=== PATIENT | male | born 1960 | race Caucasian/White ===

== ENCOUNTER 2017-02-28 20:11 | Emergency (ER) | payer BC ==
[~2017-02-28 20:11] MED LIST: IBUPROFEN PO; METH10OR11 PO
--- NOTE | 2017-02-28 21:13 | NUR ---
PATIENT LEFT WITHOUT BEING TRIAGED OR SEEN BY [facility]
== END 2017-02-28 21:14 | disposition left against medical advice (07) ==
LOC: ER 20:13
DX: Z53.21 Procedure and treatment not carried out due to patient leaving prior to being seen by health care provider (principal)

== ENCOUNTER 2023-09-21 17:07 | Emergency (ER) | payer BC, OTHER ==
[~2023-09-21] VITALS: Ht 180.3 cm; Wt 81.6 kg
[2023-09-21 19:44] LABS: BASOPHILS # (AUTO) 0.1 K/UL (0.0-0.2); BASOPHILS % (AUTO) 1.3 % (0.0-2.0); EOSINOPHILS # (AUTO) 0.1 K/uL (0.0-0.7); EOSINOPHILS % (AUTO) 1.1 % (0.0-7.0); HEMATOCRIT 38.9 % (36.7-47.1); HEMOGLOBIN 13.3 g/dL (12.5-16.3); LYMPHOCYTES # (AUTO) 3.4 K/uL (0.8-4.8); LYMPHOCYTES % (AUTO) 43.6 % (20.5-51.5); MEAN CORPUSCULAR HEMOGLOBIN 28.3 uug (23.8-33.4); MEAN CORPUSCULAR HGB CONC 34 g/dL (32.5-36.3); MEAN CORPUSCULAR VOLUME 82.9 fL (73.0-96.2); MONOCYTES # (AUTO) 0.7 K/uL (0.1-1.30); MONOCYTES % (AUTO) 9.3 % (0.0-11.0); NEUTROPHILS # (AUTO) 3.5 K/uL (1.8-8.9); NEUTROPHILS % (AUTO) 44.7 % (38.5-71.5); PLATELET COUNT (AUTO) 262 K/uL (152-348); RED BLOOD CELL COUNT(AUTO) 4.69 MIL/uL (4.06-5.63); RED CELL DISTRIBUTION WIDTH 14.1 % (12.1-16.2); WHITE BLOOD COUNT (AUTO) 7.8 K/uL (3.6-10.2)
[2023-09-21 19:45] LABS: DIFFERENTIAL COMMENT 1
[2023-09-21 19:55] LABS: CALCIUM 9.4 mg/dL (8.5-10.1); CARBON DIOXIDE 31 mmol/L (21-32); CHLORIDE 100 mmol/L (98-107); CREATININE 1.1 mg/dL (0.6-1.3); GLUCOSE 93 mg/dL (74-106); SODIUM SERUM 138 mmol/L (136-145); UREA NITROGEN, BLOOD 11 mg/dL (7-18)
[2023-09-21 20:04] LABS: ALANINE AMINOTRANSFERASE 23 U/L (16-63); ALBUMIN 3.8 g/dL (3.4-5.0); ALKALINE PHOSPHATASE 81 U/L (50-136); ASPARTATE AMINOTRANSFERASE 19 U/L (15-37); BILIRUBIN,DIRECT 0.1 mg/dL (0.0-0.2); BILIRUBIN,TOTAL 0.7 mg/dL (0.2-1.0); TOTAL PROTEIN, SERUM 7.4 g/dL (6.4-8.2)
[2023-09-21] MEDS ORDERED: HYDR25CA PO (21:17)
[2023-09-21 21:37] VITALS: BP 132/84; TEMP 98; O2SAT 98
== END 2023-09-21 21:38 | disposition home or self-care (01) ==
LOC: ER 17:08
DX: F41.9 Anxiety disorder, unspecified (principal); G43.909 Migraine, unspecified, not intractable, without status migrainosus; Z79.899 Other long term (current) drug therapy
CPT/HCPCS: 36415; 70450; 72125; 72131; 84484; 85025; 85651; 85730; 86140; A4606; A4663

== ENCOUNTER 2023-12-13 22:58 | Emergency (ER) | payer MEDICAID, OTHER ==
[~2023-12-13] VITALS: Ht 180.3 cm; Wt 83.9 kg
[~2023-12-13 22:58] MED LIST changes: +HYDR25CA PO
[2023-12-14] MEDS ORDERED: TDAP DIPH,PERTUSS,TET VAC/PF 0.5 ML DISP.SYRIN IM ONE (01:32)
[2023-12-14] MEDS ORDERED: NEOMY/BACITRA/POLYMYXIN B OINT UD PACKET TP ONE (01:33)
[2023-12-14] MEDS: TDAP DIPH,PERTUSS,TET VAC/PF 0.5 ML DISP.SYRIN IM ONE (01:35)
[2023-12-14] MEDS: NEOMY/BACITRA/POLYMYXIN B OINT UD PACKET TP ONE (02:15)
[2023-12-14] MEDS ORDERED: CARI350T27 PO (02:34)
[2023-12-14 02:50] VITALS: BP 130/63; TEMP 97.7; O2SAT 98
== END 2023-12-14 02:50 | disposition home or self-care (01) ==
LOC: ER 23:00
DX: S80.212A Abrasion, left knee, initial encounter (principal); S80.211A Abrasion, right knee, initial encounter; S09.8XXA Other specified injuries of head, initial encounter; R07.81 Pleurodynia; G43.909 Migraine, unspecified, not intractable, without status migrainosus; Z79.899 Other long term (current) drug therapy; Z79.1 Long term (current) use of non-steroidal anti-inflammatories (NSAID); Z60.2 Problems related to living alone; W01.0XXA Fall on same level from slipping, tripping and stumbling without subsequent striking against object, initial encounter; Y93.89 Activity, other specified; Y92.89 Other specified places as the place of occurrence of the external cause; Y99.8 Other external cause status
CPT/HCPCS: 71101; 90715; A4606; A4663

== ENCOUNTER 2024-03-11 05:49 | Emergency (ER) | payer MEDICAID ==
[~2024-03-11] VITALS: Ht 182.9 cm; Wt 86.2 kg
[~2024-03-11 05:49] MED LIST changes: +CARI350T27 PO
[2024-03-11] MEDS ORDERED: ACETAMINOPHEN 500 MG TABLET ONE (06:06)
[2024-03-11] MEDS: ACETAMINOPHEN 500 MG TABLET PO ONE (06:08)
[2024-03-11] MEDS ORDERED: CARI350T PO (08:23)
[2024-03-11 08:30] VITALS: BP 132/88; TEMP 98; O2SAT 97
== END 2024-03-11 08:30 | disposition home or self-care (01) ==
LOC: ER 05:52
DX: S39.012A Strain of muscle, fascia and tendon of lower back, initial encounter (principal); S80.01XA Contusion of right knee, initial encounter; S00.81XA Abrasion of other part of head, initial encounter; R51.9 Headache, unspecified; Z87.19 Personal history of other diseases of the digestive system; Z79.899 Other long term (current) drug therapy; Z88.7 Allergy status to serum and vaccine; W01.0XXA Fall on same level from slipping, tripping and stumbling without subsequent striking against object, initial encounter; Y93.89 Activity, other specified; Y92.89 Other specified places as the place of occurrence of the external cause; Y99.8 Other external cause status
CPT/HCPCS: 70450; 70486; 72110; A4606; A4663; A9150

== ENCOUNTER 2024-04-11 19:37 | Emergency (ER) | payer MEDICAID ==
[~2024-04-11] VITALS: Ht 185.4 cm; Wt 81.6 kg
[~2024-04-11 19:37] MED LIST changes: +CARI350T PO
[2024-04-12] MEDS ORDERED: OXYCODONE/APAP 5-325 MG TABLET ONE (01:15)
[2024-04-12] MEDS ORDERED: ONDANSETRON ODT 4 MG TAB.RAPDIS ONE (01:15)
[2024-04-12] MEDS: ONDANSETRON ODT 4 MG TAB.RAPDIS SL ONE (01:16)
[2024-04-12] MEDS: OXYCODONE/APAP 5-325 MG TABLET PO ONE (01:17)
[2024-04-12] MEDS ORDERED: CARI350T PO (02:54)
[2024-04-12 04:18] VITALS: BP 111/70; TEMP 98.1; O2SAT 99
== END 2024-04-12 04:19 | disposition home or self-care (01) ==
LOC: ER 19:37
DX: S16.1XXA Strain of muscle, fascia and tendon at neck level, initial encounter (principal); S80.211A Abrasion, right knee, initial encounter; S80.212A Abrasion, left knee, initial encounter; Z76.0 Encounter for issue of repeat prescription; Z87.19 Personal history of other diseases of the digestive system; Z88.7 Allergy status to serum and vaccine; W01.0XXA Fall on same level from slipping, tripping and stumbling without subsequent striking against object, initial encounter; Y93.89 Activity, other specified; Y92.89 Other specified places as the place of occurrence of the external cause; Y99.8 Other external cause status
CPT/HCPCS: 72125; 72170; A4606; A4663; Q0162

== ENCOUNTER 2024-11-29 08:27 | Emergency (ER) | payer MEDICAID ==
[~2024-11-29] VITALS: Ht 180.3 cm; Wt 77.1 kg
[2024-11-29 08:32] VITALS: O2SAT 98
[2024-11-29] MEDS: MORPHINE SULFATE 4 MG/1 ML DISP.SYRIN IV ONE (09:15)
[2024-11-29] MEDS: ONDANSETRON 4 MG/2 ML VIAL IV ONE (09:15)
[2024-11-29 09:21] LABS: PLATELET COUNT (AUTO) 198 K/uL (152-348); RED BLOOD CELL COUNT(AUTO) 4.06 MIL/uL (4.06-5.63); RED CELL DISTRIBUTION WIDTH 14.7 % (12.1-16.2); WHITE BLOOD COUNT (AUTO) 6.7 K/uL (3.6-10.2)
[2024-11-29 09:29] LABS: CREATININE 1.2 mg/dL (0.6-1.3); SODIUM SERUM 140 mmol/L (136-145); UREA NITROGEN, BLOOD 22 mg/dL (7-18)
[2024-11-29 09:32] LABS: ETHANOL < 3 MG/DL (0-10)
[2024-11-29 09:36] LABS: ASPARTATE AMINOTRANSFERASE 26 U/L (15-37); TOTAL PROTEIN, SERUM 6.7 g/dL (6.4-8.2)
[2024-11-29 10:46] LABS: *BILIRUBIN,URIN NEGATIVE (NEGATIVE); *BLOOD, URINE NEGATIVE (NEGATIVE); *CLARITY,URINE CLEAR (CLEAR); *COLOR,URINE YELLOW (YELLOW); *KETONES,URINE NEGATIVE (NEGATIVE); *PROTEIN,URINE NEGATIVE (NEGATIVE); *UROBILINOGEN,URINE 0.2 E.U./dl (NORMAL); LEUKOCYTE ESTERASE ,URINE NEGATIVE (NEGATIVE); NITRITE, URINE NEGATIVE (NEGATIVE); UGLUCOSE NEGATIVE (NEGATIVE)
[2024-11-29 10:52] LABS: *AMPHETAMINE, URINE NEGATIVE (NEGATIVE); *BARBITURATE, URINE NEGATIVE (NEGATIVE); *BENZODIAZEPINE, URINE POSITIVE (NEGATIVE); *CANNABINOID, URINE NEGATIVE (NEGATIVE); *COCCAINE, URINE NEGATIVE (NEGATIVE); *OPIATE, URINE POSITIVE (NEGATIVE); *PHENCYCLIDINE SCREEN,URINE NEGATIVE (NEGATIVE); FENTANYL, URINE POSITIVE (NEGATIVE)
[2024-11-29] MEDS ORDERED: MORPHINE SULFATE 4 MG/1 ML DISP.SYRIN ONE (12:17)
[2024-11-29] MEDS ORDERED: ONDANSETRON 4 MG/2 ML VIAL ONE (12:17)
== END 2024-11-29 12:56 | disposition home or self-care (01) ==
LOC: ER 08:27
DX: S50.812A Abrasion of left forearm, initial encounter (principal); S50.811A Abrasion of right forearm, initial encounter; S80.812A Abrasion, left lower leg, initial encounter; S80.811A Abrasion, right lower leg, initial encounter; M54.50 Low back pain, unspecified; R00.8 Other abnormalities of heart beat; R40.0 Somnolence; I47.10 Supraventricular tachycardia, unspecified; G43.909 Migraine, unspecified, not intractable, without status migrainosus; F19.10 Other psychoactive substance abuse, uncomplicated; G89.29 Other chronic pain; I10 Essential (primary) hypertension; J44.9 Chronic obstructive pulmonary disease, unspecified; Z87.19 Personal history of other diseases of the digestive system; Z88.7 Allergy status to serum and vaccine; Z20.822 Contact with and (suspected) exposure to COVID-19; Z87.39 Personal history of other diseases of the musculoskeletal system and connective tissue; W10.1XXA Fall (on)(from) sidewalk curb, initial encounter; Y93.84 Activity, sleeping; Y92.89 Other specified places as the place of occurrence of the external cause; Y99.8 Other external cause status
CPT/HCPCS: 80076; 80048; 81003; 82140; 84443; 85025; 85730; 87426; 84484; 36415; 71045; 72040; 72072; 72100; 70450; 93005; 99285; 96374; 96375; 80299; 80320; 80307; J2405; J2270; A4606; A4663; G0480